=== PATIENT | male | born 1995 | race Caucasian/White ===

== ENCOUNTER 2019-06-07 21:43 | Emergency (ER) | payer BC, SELFPAY ==
[2019-06-07 21:45] VITALS: BP 123/77; PULSE 86; RESP 16; TEMP 36.6; O2SAT 100; BMI 25.0
--- NOTE | 2019-06-07 22:20 | RAD_ITS ---
HISTORY: fall, looking for gravel in hand ADDITIONAL HISTORY: None provided. TECHNIQUE: Right hand 3 views Number of images including paperwork: 3 COMPARISON: None FINDINGS: BONES: No acute fracture. JOINTS: No subluxation. SOFT TISSUES: No distinct foreign body. Right thumb laceration. RAD/Hand Min 3 Views IMPRESSION: No acute osseous abnormality. at 2239 Reported and signed by: Charo Norton MD Electronically Signed: Charo Norton MD at 22:38 EDT Tel , Service support ,
--- NOTE | 2019-06-07 22:22 | ED.VIS.GEN ---
History of Present Illness Chief Complaint: Foreign Body Narrative: Patient presents with right hand foreign body after falling on a skateboard he has a piece of rock embedded into his palm. He denies any other injury. He sustained a similar injury to his left hand about a week ago which is healing well he has no foreign body sensation. He denies any head injury neck pain or any other injury. Past Medical History - Allergies and Home Meds Allergies/Adverse Reactions: Allergies No Known Allergies Allergy (Verified 06/07/19 21:47) Primary Care Physician: Betito Sanchez DO [Primary Care Provider] - 3-5 Days Past Medical History: None Smoking Status: Never smoker Review of Systems General: Reports: - - No loss of consciousness Musculoskeletal: Reports: - - Right hand palm abrasion with a foreign body Skin: Reports: Wounds Neurological: Denies: Weakness, Parasthesia Hematologic: Denies: Easy bruising, Easy bleeding Physical Exam Vital Signs/Narrative: Vital Signs Temp Pulse Resp BP Pulse Ox 06/07/19 21:45 97.9 F 86 16 123/77 H 100 General: Well nourished, Well developed Neck: - - No C-spine tenderness Cardiovascular: Regular rate, Regular rhythm Respiratory: No distress, CTA bilaterally. Negative for: Chest nontender Abdomen: Soft, Nontender Back: Nontender, Normal Inspection. Negative for: Spinal tenderness Extremities: - - Left palm shows a healing wound with no signs of infection, right palm reveals a 2-1/2 cm wound with an embedded piece of rock. Skin: - - Wound as above Neurological: Normal Strength, Normal Sensation Diagnostic/Tx/Re-eval Right hand x-ray reviewed by me and interpreted by me as well as the radiologist shows no foreign body. No fracture. - Medical Decision Making Wound care was provided the foreign body was removed with no subsequent foreign body on x-ray afterwards. We will discharge in stable condition. Procedures Procedure(s): Foreign body retrieval: Verbal consent obtained. 1% lidocaine was used about 2 mL, I used forceps to remove the rock from the right palm. Patient tolerated procedure well. A postprocedure x-ray was ordered to rule out any other foreign body. ED Disposition - Plan for ED Patient: Disposition: Home or Assisted Living Diagnosis: Hand contusion, Foreign body in hand Instructions: ED HAND CONTUSION, Wound Care Referrals: Sanchez,Betito, DO [Primary Care Provider] - 3-5 Days
[2019-06-07 23:03] VITALS: RESP 18
== END 2019-06-07 23:04 | disposition home or self-care (01) ==
LOC: ED 22:56
PROVIDERS: Emergency Provider Emergency Medicine; PCP Student in an Organized Health Care Education/Training Program
DX: S60.551A Superficial foreign body of right hand, initial encounter (principal); S60.221A Contusion of right hand, initial encounter; V00.131A Fall from skateboard, initial encounter; Y93.51 Activity, roller skating (inline) and skateboarding; Y99.9 Unspecified external cause status
CPT/HCPCS: 10120; 73130; 99283